=== PATIENT | female | born 1975 | race Caucasian/White ===

== ENCOUNTER 2022-03-05 21:40 | Observation (INO) ==
[2022-03-05] MEDS ORDERED: 0.9 % SODIUM CHLORIDE 1,000 ML IV ONE (21:50)
[2022-03-05 21:57] LABS: POC Calcium, Ionized 1.21 (1.16-1.32); POC Creatinine 0.8 (0.6-1.2)
[2022-03-05] MEDS ORDERED: ACETAMINOPHEN 500 MG TABLET PO ONE (22:11)
[2022-03-05] MEDS ORDERED: morphine 4 MG/ML VIAL IV ONE ×2 (22:11→22:55)
[2022-03-05] MEDS ORDERED: KETOROLAC 30 MG/ML VIAL IV ONE (22:11)
[2022-03-05] MEDS ORDERED: ONDANSETRON 4 MG/2 ML VIAL IV ONE (22:11)
--- NOTE | 2022-03-05 22:13 | Emergency Department Note ---
Abdominal Pain HPI General Chief Complaint: Abdominal Pain Stated Complaint: Abdominal Pain Time Seen by Provider: 03/05/22 22:03 Source: patient Mode of arrival: wheelchair Limitations: no limitations History of Present Illness HPI Narrative: Patient with history of Jose-en-Y gastric bypass surgery brought by mother evaluation of acute sudden onset diffuse feeling of abdominal distention, and focally most intense in right lower quadrant with associated distention occurring approximately 45 minutes prior to arrival associated with nausea and vomiting. States her abdomen feels much firmer to her than baseline. Pain rated 10/10 aching cramping. No treatment attempted prior to arrival. Denies similar symptoms in the past Denies dysuria, hematuria or history of known kidney stones in the past, Mother does have history of kidney stones last bowel movement the morning prior to arrival, does use miralax daily for bowel movements Patient denies current CP, sob, fever, chills, no focal acute weakness, loss /change of sensation, or any other complaints at this time. PMH/PSHx/Meds/Allergies/SH/FH as per nursing documentation and reviewed. A full 10 point review of systems reviewed and negative except as noted in HPI. Related Data Allergies Allergy/AdvReac Type Severity Reaction Status Date / Time Penicillins Allergy Severe Anaphylaxis Verified 03/05/22 21:45 iodine Allergy Mild Rash Verified 03/05/22 21:45 Review of Systems ROS ROS Narrative: see HPI PFSH Narrative Patient History Narrative: Narrative: Medical/Surgical/Family History All Active Problems (Updated 03/06/22 @ 03:16 by Dylon Hartmann DO) Abdominal pain (Acute) Nausea & vomiting (Acute) Dehydration (Acute) Hypokalemia (Acute) Social History Smoking Status: Former smoker Exam Narrative Narrative: PHYSICIAL EXAM: Vitals reviewed GENERAL: Awake and alert in room, appears uncomfortable but nontoxic, nondiaphoretic, no active vomiting, the patient appears nourished and normally developed. Vital signs as documented. EYES: Head exam is unremarkable. No scleral icterus HEENT: Mucous membranes moist. Nares patent without copious rhinorrhea. LUNGS: No increased work of breathing, maintaining adequate SPO2 on room air no accessory muscle use no conversational dyspnea ABDOMEN: Nonrigid, tender in lower abdominal area bilateraly and midline, mildly-distended, no rebound/guarding, nonrigid, with no obvious masses, no pulsatile mass EXTREMITIES: No peripheral edema, with no obvious deformities. SKIN: Good color, with no significant rashes. No pallor. NEURO: No obvious neurological deficits, normal sensation and strength bilaterally. Patient able to ambulate with steady gait under own strength. PSYCH: Mood and affect normal. Appropriate for age. General Limitations: no limitations Course Reevaluation(s) Reevaluation #1: Patient feeling improvement but pain is still present give additional dose of medication Time: 22:56 Reevaluation #2: No leukocytosis, vital signs remaining stable pending CT imaging results Time: 23:11 Reevaluation #3: Patient feeling improvement, CT imaging obtained and reviewed appears to have very abnormal ileus pattern, blood pressure not remaining stable, no increasing heart rate, reconfirmed that all symptoms started approximately 9 PM this evening otherwise has been feeling her normal self earlier today is visiting from out of town her Jose-en-Y surgery occurred in [place], is actively passing flatus has been having bowel movements as usual prior Time: 23:16 Additional Reevaluation(s): 23:44 vital signs continue remained stable, discomfort has improved still passing flatus, localizing to feeling of distention right lower quadrant area, abdomen not acutely rigid discussed awaiting CT imaging results after review by radiologist possible bowel etiology, symptoms do appear to be improved with medication patient not acutely toxic appearing Reassuring without leukocytosis no fever obtain lactic acid level to evaluate 2355 no elevation of serum lactate level 0023 vital signs remaining stable still pending CT imaging interpretation, radiology service contacted for estimation of time for interpretation 0044 sleeping comfortably in bed, vital signs remaining stable explained to the awaiting CT imaging results for final disposition wwill continue to monitor 0140 discussed tentative plan with patient and family, in agreement with being placed in observation to be seen by general surgeon in the morning understands plan to initiate bowel motility regimen to decompress large bowel, discomfort r emains improved Consultations Consultation #1: Dr. Harrison General Surgery, discussed patient history symptoms presentation and laboratory imaging results, after discussion feels reasonable placing patient observation due to her medical history level of discomfort for monitoring and can repeat abdominal imaging in the morning when reevaluated, additionally start bowel regimen Milk of magnesia 30 cc every 2 hours for glass of MiraLAX and Reglan to stimulate small bowel motility Time: 01:35 Vital Signs Vital signs: Vital Signs Temperature 97.0 F 06/26/22 21:41 Pulse Rate 71 03/05/22 21:41 Respiratory Rate 18 03/05/22 21:41 Blood Pressure 110/73 03/05/22 21:41 Pulse Oximetry (%) 94 03/05/22 21:41 Temperature 97.0 F 03/05/22 21:41 Pulse Rate 66 03/06/22 03:00 Respiratory Rate 18 03/05/22 21:41 Blood Pressure 99/61 03/06/22 03:00 Pulse Oximetry (%) 98 03/06/22 03:00 [facility] Narrative Medical decision making narrative: All results/imaging obtained reviewed and interpreted, results trended/compared with previous levels if available to evaluate for abnormality contributing to todays presentation, Patient afebrile, no leukocytosis, improved symptomatically in emergency department with medications provided, CT imaging results reviewed and discussed with on-call general surgeon decision made to place patient observation due to atypical onset of symptoms degree of discomfort patient medical history, patient and family were in agreement with observation After reviewing patients comorbidities, severity of history of presenting illness, labs and imaging if obtained in conjunction with physical exam and course in emergency department, deemed to have potential for deterioration/progression of symptoms that could lead to multiple morbidities or mortality, decision made that patient requires further observation/evalu ation/treatment and patient admitted to appropriate service, patient/family understand and agree with plan. Chart created with voice recognition software, errors may be present due to softwares interpretation Lab Data Result diagrams: 03/05/22 22:15 Labs: Lab Results 03/05/22 03/05/22 03/05/22 Range/Units 21:52 22:15 22:15 WBC 9.7 (4.5-11.0) K/mcL RBC 4.33 (3.59-5.38) M/mcL Hgb 13.1 (11.2-15.7) g/dL Hct 38.5 (34.1-44.9) % POC Hct 38.0 (36-48) MCV 88.9 (80.0-100.0) fL MCH 30.3 (26.0-34.0) pg MCHC 34.0 (31.0-36.0) g/dL RDW 11.7 (11.5-14.5) % Plt Count 352 (140-440) K/mcL MPV 9.5 (7.4-10.4) fL Neut % (Auto) 51.4 (38.0-78.0) % Lymph % (Auto) 38.7 (15.5-49.0) % Sheridan % (Auto) 8.2 (1.0-12.0) % Eos % (Auto) 1.4 (0.0-7.0) % Baso % (Auto) 0.3 (0.0-2.0) % Lymph # (Auto) 3.75 (1.50-4.80) K/mcL Sheridan # (Auto) 0.79 (0.10-0.90) K/mcL Eos # (Auto) 0.14 (0.00-0.70) K/mcL Baso # (Auto) 0.03 (0.00-0.30) K/mcL Absolute Neutrophils 4.97 (1.80-8.00) K/mcL POC VBG pH (7.32-7.42) POC VBG pCO2 at Temp (41-51) POC VBG pO2 (25-40) POC VBG HCO3 (24-28) POC VBG Total CO2 (25-29) POC Venous O2 Sat (40-70) POC VBG Base Excess (-2-2) POC Sodium 144 (133-145) POC Potassium 3.0 L (3.3-5.1) POC Chloride 102 (96-108) POC Total CO2 27.0 (22-30) POC BUN 29 H (6-20) POC Creatinine 0.8 (0.6-1.2) POC Glucose 98 (70-105) POC Venous Lactate (0.5-2) POC WB Ioniz Calcium 1.21 (1.16-1.32) Magnesium 2.1 (1.6-2.5) mg/dL 03/05/22 Range/Units 23:46 WBC (4.5-11.0) K/mcL RBC (3.59-5.38) M/mcL Hgb (11.2-15.7) g/dL Hct (34.1-44.9) % POC Hct (36-48) MCV (80.0-100.0) fL MCH (26.0-34.0) pg MCHC (31.0-36.0) g/dL RDW (11.5-14.5) % Plt Count (140-440) K/mcL MPV (7.4-10.4) fL Neut % (Auto) (38.0-78.0) % Lymph % (Auto) (15.5-49.0) % Sheridan % (Auto) (1.0-12.0) % Eos % (Auto) (0.0-7.0) % Baso % (Auto) (0.0-2.0) % Lymph # (Auto) (1.50-4.80) K/mcL Sheridan # (Auto) (0.10-0.90) K/mcL Eos # (Auto) (0.00-0.70) K/mcL Baso # (Auto) (0.00-0.30) K/mcL Absolute Neutrophils (1.80-8.00) K/mcL POC VBG pH 7.35 (7.32-7.42) POC VBG pCO2 at Temp 53.1 H (41-51) POC VBG pO2 32 (25-40) POC VBG HCO3 29.1 H (24-28) POC VBG Total CO2 31.0 H (25-29) POC Venous O2 Sat 58.0 (40-70) POC VBG Base Excess 3.0 H (-2-2) POC Sodium (133-145) POC Potassium (3.3-5.1) POC Chloride (96-108) POC Total CO2 (22-30) POC BUN (6-20) POC Creatinine (0.6-1.2) POC Glucose (70-105) POC Venous Lactate 0.6 (0.5-2) POC WB Ioniz Calcium (1.16-1.32) Magnesium (1.6-2.5) mg/dL CC TIME Critical Care Time Critical Care Time: Yes Attestation: Due to the patient's symptoms on presentation. Need for frequent reassessment. Potential for deterioration. All ordered diagnostic testing results obtained were reviewed and interpreted, results trended/compared with previous levels if available to evaluate for abnormality/interval change contributing to todays presentation, multiple IV fluid boluses, multiple dose of IV analgesic medication, IV antiemetics, review of CT imaging, discussion with on-call general surgeon for expert recommendations and for admission,time required for documentation in ED EMR Critical care time total 35 minutes. This did not include any separate billable procedures. Discharge Plan Patient/Caregiver Discharge Instructions Pt seen by BARGE WORKER/PA only: No Clinical Impression: Abdominal pain, Nausea & vomiting, Dehydration, Hypokalemia Patient Disposition: Xfer As Outpt/Obs ([facility]) Condition: Fair
[2022-03-05 23:02] LABS: Basophils # (Auto) 0.03 K/mcL (0.00-0.30); Basophils % (Auto) 0.3 % (0.0-2.0); Eosinophils # (Auto) 0.14 K/mcL (0.00-0.70); Eosinophils % (Auto) 1.4 % (0.0-7.0); Hematocrit 38.5 % (34.1-44.9); Hemoglobin 13.1 g/dL (11.2-15.7); Lymphocytes # (Auto) 3.75 K/mcL (1.50-4.80); Lymphocytes % (Auto) 38.7 % (15.5-49.0); Mean Cell Volume 88.9 fL (80.0-100.0); Mean Platelet Volume 9.5 fL (7.4-10.4); Monocytes # (Auto) 0.79 K/mcL (0.10-0.90); Monocytes % (Auto) 8.2 % (1.0-12.0); Neutrophils % (Auto) 51.4 % (38.0-78.0); Platelet Count 352 K/mcL (140-440); RBC 4.33 M/mcL (3.59-5.38); Red Cell Distribution Width 11.7 % (11.5-14.5); WBC 9.7 K/mcL (4.5-11.0)
[2022-03-06] MEDS ORDERED: 0.9 % SODIUM CHLORIDE 1,000 ML IV ONE (01:31)
[2022-03-06] MEDS ORDERED: POLYETHYLENE GLYCOL 3350 17 GM PACKET PO ONE (01:56)
[2022-03-06] MEDS ORDERED: METOCLOPRAMIDE 10 MG/2 ML VIAL IV ONE (02:07)
[2022-03-06] MEDS ORDERED: morphine 4 MG/ML VIAL IV PRN (02:41)
[2022-03-06] MEDS ORDERED: ONDANSETRON 4 MG/2 ML VIAL IV PRN (02:41)
[2022-03-06] MEDS ORDERED: MAGNESIUM HYDROXIDE 30 ML ORAL.SUSP PO PRN (03:00)
[2022-03-06] MEDS: MAGNESIUM HYDROXIDE 30 ML ORAL.SUSP PO SCH ×4 (03:52→08:52)
[2022-03-06] MEDS ORDERED: 0.9 % SODIUM CHLORIDE 10 ML SYRINGE IV SCH (06:00)
[2022-03-06] MEDS ORDERED: PANTOPRAZOLE 40 MG TABLET PO SCH (07:30)
[2022-03-06] MEDS ORDERED: POTASSIUM CHLORIDE 40 MEQ in DEXTROSE 5% IN WATER 500 ML IV ONE (07:43)
--- NOTE | 2022-03-06 08:11 | Cat Scan Report ---
History: Sudden onset left flank pain with nausea and vomiting, prior weight loss surgery and hysterectomy TECHNIQUE: The patient was imaged without contrast in axial plane at 2.5 mm intervals from above the diaphragm through the symphysis pubis. Sagittal and coronal reformats were created. The radiation exposure was limited using dose reduction technology. FINDINGS: The lung bases are clear. Evaluation of the abdominal organs without contrast is somewhat limited. The liver and spleen are mildly enlarged. There is a solitary small calcified granuloma in the spleen. The liver and spleen are otherwise homogeneous. The gallbladder appears normal with no calcified stones or thickening of the wall. The bile ducts are nondilated. No abnormality is detected in the pancreas. The adrenals are normal and symmetric. A 3 x 5 mm nonobstructing calculus is present within an infundibulum in the lower third of the left kidney. The kidneys are otherwise normal and there is no hydronephrosis or evidence of inflammation in or around either kidney. Both ureters are decompressed. The urinary bladder is also decompressed and there are no stones within the lumen. The aorta and inferior vena cava are normal in caliber and there is no plaque formation in the aorta. The patient had a prior Jose-en-Y procedure. The anastomosis appears normal without evidence of obstruction or inflammation. No ascites or free air are present within the abdomen or pelvis. There is a large amount gas throughout the large intestine from the cecum to the distal descending colon. The cecum measures up to 9.8 cm in diameter. The wall of the large intestine is normal in thickness and noninflamed. There are no diverticula. The small intestine is normal in caliber. No air-fluid levels are present. The uterus has been removed. Neither ovary is seen. They may have been removed or they are obscured by adjacent unopacified small bowel. IMPRESSION: Normal postoperative changes following prior gastric bypass. Small nonobstructing stone left kidney Moderate amount of gas in the large intestine Mild hepatosplenomegaly Interpreted and Authenticated by: Joseluis Johnson 03/06/22
--- NOTE | 2022-03-06 08:43 | XRay Report ---
HISTORY: Follow-up colonic obstruction versus ileus, abdominal pain FINDINGS: The large and small intestine are now normal in caliber. There is normal quantity of stool in the large intestine. There is no evidence of obstruction or ileus. No free intra-abdominal air is present. There are few small nonspecific air-fluid levels. Postsurgical changes are again seen in the left upper quadrant following prior weight loss surgery. Comparison with the CT performed on 03/05/22 shows resolution of previously seen distended large intestine. IMPRESSION: Normal exam Interpreted and Authenticated by: Joseluis Johnson 03/06/22
[2022-03-06] MEDS ORDERED: METOCLOPRAMIDE 10 MG/2 ML VIAL IV SCH (12:00)
--- NOTE | 2022-03-06 15:09 | General Surg History&Physical ---
HPI History of Present Illness Patient information: Note initiated : 03/06/22 at 3:00 pm Service Date, if different from initiated Date: [] Patient: Nadja Alvarado a 47 y/o F admitted on 03/06/22 for Abdominal Pain. Chief Complaint: [] Chief complaint: Right lower abdominal pain;; Colonic distention History of present illness: Ms. Alvarado is a 47 year old F with history of acute onset of right-sided abdominal pain about 9 PM on the day prior to admission. The pain increased in intensity and she had nausea but no vomiting. She was seen in the emergency room and was noted to have severe dilation of her colon with major dilation of her cecum at about 10cm. The colonic distention extended to the distal sigmoid colon. The patient gives a history of having a regular bowel movement on the day prior to admission. She had some flatus a few hours before coming to the emergency room. Abdominal x-rays and CT shows massive dilation of the entire colon as described above. There was no transition point to suggest colonic obstruction. She had minimal dilation of her small bowel. Because of clinical findings and discomfort patient is admitted and will have IV Reglan with oral MiraLAX. She will be treated symptomatically. Review of Systems All systems: reviewed and no additional remarkable complaints except as stated (Negative except noted in the history of present illness) PFSH PFSH All Active Problems (Updated 03/06/22 @ 15:08 by Guilherme Harrison MD) Primary chronic pseudo-obstruction of colon (Acute) Abdominal pain (Acute) Nausea & vomiting (Acute) Dehydration (Acute) Hypokalemia (Acute) Surgical History (Updated 03/06/22 @ 15:05 by Guilherme Harrison MD) History of gastric bypass MEDS/ALLERGIES Home Medications and Allergies Home Medications Medication Instructions Recorded Confirmed Type buspirone 15 mg tablet 1 tab PO QDAY 03/06/22 03/06/22 History cyclobenzaprine 10 mg tablet 1 tab PO HS 03/06/22 03/06/22 History ergocalciferol (vitamin D2) 1,250 1 cap PO DAILY 03/06/22 03/06/22 History mcg (50,000 unit) capsule (Vitamin D2) trazodone 150 mg tablet 1 tab PO HS 03/06/22 03/06/22 History Allergies Allergy/AdvReac Type Severity Reaction Status Date / Time Penicillins Allergy Severe Anaphylaxis Verified 03/05/22 21:45 iodine Allergy Mild Rash Verified 03/05/22 21:45 Physical Examination Vital Signs Vital signs: Temp Pulse Resp BP Pulse Ox 97.6 F 60 16 115/68 95 03/06/22 11:41 03/06/22 11:41 03/06/22 11:41 03/06/22 11:41 03/06/22 11:41 General physical appearance General physical exam: moderate distress and moderate pain Eyes Eye exam: PERRL and normal ocular movement ENT ENT exam: normal mucosa and no hearing loss Head Head exam IM: Present atraumatic, normal inspection and normocephalic Neck Neck exam: no masses, no bruits, trachea midline, no lymphadenopathy and no venous distension Cardiovascular Cardiovascular exam IM: Present normal rate and rhythm, RRR, +S1, +S2 and systolic murmur; Absent JVD Respiratory Respiratory exam: normal expansion, normal respiratory effort and clear to auscultation Abdomen Abdomen: Present tender (Mild tenderness in right lower quadrant; mild diffuse dilation of abdomen) Integumentary Integumentary: Present no rash, no growths and no abnormal pigmentation Neurologic Neurologic: Present normal coordination and normal sensation Musculoskeletal Musculoskeletal: Present normal gait and normal posture Psychiatric Psychiatric: Present oriented to time, oriented to person, oriented to place, speech is normal and memory intact Results Labs Result diagrams: 03/05/22 22:15 Labs: Abnormal lab results 03/05/22 03/05/22 Range/Units 21:52 23:46 POC VBG pCO2 at Temp 53.1 H (41-51) POC VBG HCO3 29.1 H (24-28) POC VBG Total CO2 31.0 H (25-29) POC VBG Base Excess 3.0 H (-2-2) POC Potassium 3.0 L (3.3-5.1) POC BUN 29 H (6-20) All other labs normal. A/P Assessment and plan (1) Primary chronic pseudo-obstruction of colon: Status: Acute (2) Abdominal pain: Status: Acute (3) Nausea & vomiting: Status: Acute (4) Hypokalemia: Status: Acute Plan IV hydration MiraLAX p.o. every 2 hours x4 Metoclopramide 10 mg IV every 6 hours Follow-up x-rays as needed If patient decompresses she will need to have follow-up colonoscopy. She stays out of town and will be returning to [place] tomorrow Time Spent With Patient Time: Total time spent is greater than 50% in coordination of care (as documented) at patient's floor/unit and/or counseling patient:
--- NOTE | 2022-03-06 15:13 | Event Note ---
Event Note Event Note: Patient has progressed well. She has had multiple bowel movements and her abdomen is now flat. She is asymptomatic and has tolerated regular diet without difficulty. Follow-up x-rays shows total decompression of the colon. She is clinically stable and can be discharged home. She is advised that she will need to have follow-up colonoscopy once she returns to [place]
[2022-03-06] MEDS ORDERED: traZODone HCL 150 MG TABLET PO SCH (21:00)
[2022-03-06] MEDS ORDERED: CYCLOBENZAPRINE 10 MG TABLET PO SCH (21:00)
[2022-03-07] MEDS ORDERED: ERGOCALCIFEROL (VITAMIN D2) 50,000 UNIT CAPSULE PO SCH (09:00)
[2022-03-07] MEDS ORDERED: busPIRone 15 MG TABLET PO SCH (09:00)
== END 2022-03-06 15:30 | disposition home or self-care (01) ==
LOC: ED 21:40 → MEDSUR 21:40
PROVIDERS: ADMIT Family Medicine Adult Medicine; ATTEND Family Medicine Adult Medicine